=== PATIENT | male | born 1990 | race Caucasian/White ===

== ENCOUNTER 2017-04-22 19:43 | Emergency (ER) | payer OTHER ==
--- NOTE | 2017-04-22 20:13 | CPEKG ---
Heart Rate: 75 RR Interval: 800 P-R Interval: 116 QRSD Interval: 92 QT Interval: 380 QTC Interval: 425 P [place]: 12 QRS [place]: 74 T Wave [place]: 54 EKG Severity - NORMAL ECG - EKG Impression: SINUS RHYTHM Electronically Signed By: Bogdan Wallace 22-Apr-2017 21:13:53
[2017-04-22 20:40] LABS: PLATELET COUNT 232 10^3/uL (150-400)
--- NOTE | 2017-04-22 21:00 | EDPHY ---
General Time Seen by Provider: 04/22/17 20:48 Narrative: CHIEF COMPLAINT: Chest pain HISTORY OF PRESENT ILLNESS: Patient complains of left-sided chest pain. This started abruptly at 4:45 p.m.. He was resting at work when this happened. It is described as a sharp, stabbing pain. It is located the left side of the chest. It has been constant since onset. Nonradiating. Nonexertional. Worse with inspiration and breathing. No diaphoresis, nausea. No extremity erythema edema or pain. No recent travel, trauma or surgery. No history of venous thrombolic event. Does have a history of SVT, status post ablation in 2013. It has minimally improved since time of onset. Does have history of mild viral type complaints over the past few weeks but no formal evaluation. No other associated complaints or modifying factors. REVIEW OF SYSTEMS: Ten systems reviewed and are negative unless otherwise noted in the HPI PCP: None SPECIALISTS: None locally PAST MEDICAL HISTORY: SVT, asthma PAST SURGICAL HISTORY: Cardiac ablation 2013 SOCIAL HISTORY: Nonsmoker. Lives and works here locally FAMILY HISTORY: Noncontributory EXAMINATION General Appearance: Alert, no distress Head: normocephalic, atraumatic Eyes: Pupils equal and round, no conjunctival pallor or injection ENT, Mouth: Mucous membranes moist Neck: Normal inspection, supple, non-tender Respiratory: Lungs are clear to auscultation. No wheeze, rhonchi or crackles Cardiovascular: Regular rate and rhythm. No murmur Gastrointestinal: Abdomen is soft and nontender Back: non-tender, no bony abnormalities Neurological: A&O, nonfocal, normal gait Skin: Warm and dry, no rash no petechiae Extremities: Nontender, no pedal edema Psychiatric: Mood and affect normal DIFFERENTIAL DIAGNOSES: Including but not limited to ACS, pericarditis, pleurisy, pericardial effusion, PE MDM: 8:55 p.m. Left-sided chest pain that started abruptly at 4:45 p.m. At rest. This has been constant. It is worse with inspiration. It is worse with unpredictable movements. Nonexertional. Does not radiate. No recent travel, trauma or history of venous thrombolic event. Does have a history of SVT status post ablation. Vital signs are within normal limits. His EKG reveals sinus rhythm. He is in no acute distress. Laboratory studies are pending. 9:10 p.m. CBC, chemistry and troponin are negative. I have added a D-dimer. Chest x-ray is unremarkable as read by radiologist. He is resting comfortably in no acute distress with normal vital signs. I discussed with Dr. Wallace and he is requesting 2nd EKG. 10:00 p.m. D-dimer is negative. Repeat EKG has been interpreted by Dr. Wallace. I have re -evaluated the patient is resting comfortably. He does have mild pain but is tolerable to him. I have reviewed the EKGs them. I reviewed the laboratory studies including a negative troponin and D-dimer. I discussed the chest x-ray findings. Both Dr. Wallace and I are comfortable with the patient be discharged home at this time. This may be a mild pericarditis or pleurisy. We will try Toradol and colchicine, and short duration of colchicine prescription. He is also to take ibuprofen every 6-8 hours as discussed. I will provide the on-call cardiology and primary care physicians for him to establish. I would like him to return in 24 hr if he does not have resolution of his symptoms. He is to return sooner for any worsening pain, radiating pain, exertional pain. He is comfortable this plan and discharged home stable condition EKG interpretation: Dr. Wallace SUPERVISION: Patient was independently examined, but I discussed the case with my secondary supervising physician Dr. Wallace - Diagnostics Imaging Results: Imaging Impressions Chest X-Ray 04/22/17 20:33 Impression: No acute thoracic abnormality. - History Smoking Status: Never smoked - Objective Vital Signs: Initial Vital Signs Temperature (C) 97.5 F 04/22/17 19:57 Heart Rate 65 04/22/17 19:57 Respiratory Rate 16 04/22/17 19:57 Blood Pressure 120/93 H 04/22/17 19:57 O2 Sat (%) 95 04/22/17 19:57 O2 Delivery Mode Room Air Allergies/Adverse Reactions: No Known Allergies Allergy (Unverified 04/22/17 19:56) Home Medications: Medication Instructions Recorded Albuterol [Proventil Inhaler HFA 04/22/17 (*)] Colchicine 0.6 mg PO DAILY #10 capsule 04/22/17 Laboratory Results: Laboratory Results 04/22/17 20:12 04/22/17 20:12 04/22/17 04/22/17 04/22/17 20:12 20:12 20:12 WBC 7.62 10^3/uL 10^3/uL (3.80-9.50) RBC 5.35 10^6/uL 10^6/uL (4.40-6.38) Hgb 16.3 g/dL g/dL (13.7-17.5) Hct 46.2 % % (40.0-51.0) MCV 86.4 fL fL (81.5-99.8) MCH 30.5 pg pg (27.9-34.1) MCHC 35.3 g/dL g/dL (32.4-36.7) RDW 12.7 % % (11.5-15.2) Plt Count 232 10^3/uL 10^3/uL (150-400) MPV 10.2 fL fL (8.7-11.7) Neut % (Auto) 60.2 % % (39.3-74.2) Lymph % (Auto) 28.2 % % (15.0-45.0) [place] % (Auto) 4.3 % L % (4.5-13.0) Eos % (Auto) 6.3 % % (0.6-7.6) Baso % (Auto) 0.7 % % (0.3-1.7) Nucleat RBC Rel Count 0.0 % % (0.0-0.2) Absolute Neuts (auto) 4.59 10^3/uL 10^3/uL (1.70-6.50) Absolute Lymphs (auto) 2.15 10^3/uL 10^3/uL (1.00-3.00) Absolute Monos (auto) 0.33 10^3/uL 10^3/uL (0.30-0.80) Absolute Eos (auto) 0.48 10^3/uL H 10^3/uL (0.03-0.40) Absolute Basos (auto) 0.05 10^3/uL 10^3/uL (0.02-0.10) Absolute Nucleated RBC 0.00 10^3/uL 10^3/uL (0-0.01) Immature Gran % 0.3 % % (0.0-1.1) Immature Gran # 0.02 10^3/uL 10^3/uL (0.00-0.10) D-Dimer < 0.27 ug/mLFEU ug/mLFEU (0.00-0.50) Sodium 143 mEq/L mEq/L (135-145) Potassium 4.1 mEq/L mEq/L (3.5-5.2) Chloride 103 mEq/L mEq/L (97-110) Carbon Dioxide 27 mEq/l mEq/l (22-31) Anion Gap 13 mEq/L mEq/L (8-16) BUN 18 mg/dL mg/dL (7-23) Creatinine 1.2 mg/dL mg/dL (0.7-1.3) Estimated GFR > 60 Glucose 76 mg/dL mg/dL (70-100) Calcium 9.4 mg/dL mg/dL (8.5-10.4) Troponin I < 0.012 ng/mL ng/mL (0.000-0.034) Medications Given: Discontinued Medications Colchicine (Colchicine) 0.6 mg PO EDNOW ONE Stop: 04/22/17 22:27 Last Admin: 04/22/17 22:32 Dose: 0.6 mg Ketorolac Tromethamine (Toradol) 30 mg IVP EDNOW ONE Stop: 04/22/17 22:27 Last Admin: 04/22/17 22:31 Dose: 30 mg Departure - Departure Disposition: Home, Routine, Self-Care Clinical Impression: Acute chest pain Condition: Good Instructions: Colchicine (By mouth), Chest Pain (ED), Pleurisy (ED), Acute Pericarditis (ED) Additional Instructions: 1. Ibuprofen 600 mg every 6-8 hours starting tomorrow morning 2. Colchicine as prescribed once daily starting Wednesday 3. Contact the on-call project manager/design manager as provided for outpatient care 4. Contact the on-call outpatient primary care physician as provided for outpatient care 5. Return to emergency department immediately for worsening pain, fever, shortness of breath, exertional pain, radiating pain 6. return to emergency department in 24 hr if you do not have resolution of her symptoms Referrals: Andrey Cedeno MD [[facility] [place] Primary Care Provider] - As per Instructions Alexander Espinoza MD [Medical Doctor] - As per Instructions Prescriptions: Colchicine 0.6 mg PO DAILY #10 capsule
--- NOTE | 2017-04-22 21:21 | CPEKG ---
Heart Rate: 73 RR Interval: 822 P-R Interval: 108 QRSD Interval: 88 QT Interval: 372 QTC Interval: 410 P [place]: 2 QRS [place]: 68 T Wave [place]: 62 EKG Severity - BORDERLINE ECG - EKG Impression: SINUS RHYTHM EKG Impression: SHORT IA INTERVAL, ACCELERATED AV CONDUCTION Electronically Signed By: Bogdan Wallace 22-Apr-2017 22:13:12
[2017-04-22] MEDS ORDERED: KETOROLAC 30 MG/1 ML SDV IVP ONE (22:26)
[2017-04-22] MEDS ORDERED: COLCHICINE 0.6 MG CAP/TAB PO ONE (22:26)
[2017-04-22 22:32] VITALS: O2SAT 97
[2017-04-22 23:08] VITALS: BP 119/73; PULSE 62; RESP 18; TEMP 98.2
== END 2017-04-22 23:08 | disposition home or self-care (01) ==
DX: R07.9 Chest pain, unspecified (principal)
CPT/HCPCS: 96374; J1885